=== PATIENT | female | born 2000 | race Caucasian/White ===

== ENCOUNTER 2024-09-25 18:20 | Observation (INO) ==
[2024-09-25] MEDS: ONDANSETRON INJ 2 MG/ML 2 ML VIAL IV STA (19:01)
[2024-09-25] MEDS: MoRPHine SULFATE 4 MG/ML 1 ML CARP\\VIAL IV STA (19:04)
[2024-09-25 19:08] LABS: Hematocrit (blood only) 33.6 % (37.0-47.0); Hemoglobin 10.6 g/dl (12.0-16.0); Mean Corpuscular Hemoglobin 26.2 pg (25.0-34.0); Mean Corpuscular Hgb Conc 31.5 g/dL (32.0-36.0); Mean Corpuscular Volume 83.2 fL (80.0-100.0); Mean Platelet Volume 10.6 fL (9.4-12.4); Platelet Count 277 K/uL (130-400); RDW Coefficient of Variation 15.9 % (11.5-14.5); RDW Standard Deviation 49.1 fL (36.4-46.3); Red Blood Count 4.04 M/uL (4.20-5.40); White Blood Count 9.48 K/ul (4.8-10.8)
[2024-09-25 19:17] LABS: Albumin Globulin Ratio 1.5 (0.9-2); Albumin Level 4.3 gm/dl (3.4-5.0); BUN Creatinine Ratio 10.7 (10-20); Bilirubin,Total 0.5 mg/dl (0.2-1.0); Creatinine Clr Calc Pharmacy 141.3 ml/min; Globulin 2.8 gm/dl (2.5-4.0); Potassium 3.4 mmol/L (3.5-5.1); Total Protein 7.1 gm/dl (6.0-8.3)
[2024-09-25 19:35] LABS: INR 1.2 (0.9-1.1); Partial Thromboplastin Time 26 Seconds (21-31); Prothrombin Time 12.4 Seconds (9.0-12.0)
[2024-09-25] MEDS: KETOROLAC TROMETHAMINE 15 MG/ML VIAL IV STA (20:01)
--- NOTE | 2024-09-25 20:47 | Ultrasound Report ---
Exam(s): US PELVIS EXAM: US Pelvis Transabdominal, Complete CLINICAL HISTORY: Reason for exam: vaginal bleeding/retained POC/endometritis. TECHNIQUE: Real-time complete transabdominal pelvic ultrasound with image documentation. COMPARISON: No relevant prior studies available. FINDINGS: Uterus/cervix: Uterus measures 9.7 x 3.9 x 5.8 cm. Endometrium measures 7 mm. Complex material at the fundal endometrium with possible vascularity, concerning for retained products. No myometrial mass. Right ovary: Right ovary measures 20 x 12 x 24 mm. Normal blood flow. Left ovary: Left ovary not visualized, obscured by bowel gas. Free fluid: No free fluid. Bladder: Unremarkable as visualized. Wall is normal thickness for degree of distention. IMPRESSION: Complex material at the fundal endometrium with possible vascularity, concerning for retained products. Electronically signed by: Polo Britt M.D. 09/25/24 20:46 PM
--- NOTE | 2024-09-25 20:59 | Emergency Department Note ---
History of Present Illness General Chief complaint: Pelvic Pain Stated complaint: BLEEDING FROM D/C, PELVIC PAIN Time Seen by Provider: 09/25/24 18:48 History of Present Illness Provider complaint: Vaginal bleeding pelvic pain Onset (ago): day(s) 1 Maximum Pain Intensity: 3 24-year-old female presents emergency department for vaginal bleeding and pelvic pain. Patient reports she had a recent miscarriage and had D&C done. She states she has a follow-up visit with TRANSPORTATION CONSULTANT Dr. Millard today. She states after the pelvic examination examination she went home and was having increasing pain and vaginal bleeding passing this size blood clots through her vagina and filling up the toilet 3 times with blood from her vagina. No melena or hematochezia. No fever. Home Medications Medication Instructions Recorded Confirmed Type buspirone 5 mg tablet 5 mg PO BID 08/21/24 09/25/24 History escitalopram oxalate 10 mg tablet 10 mg PO QAM 08/21/24 09/25/24 History (Lexapro) mirtazapine 15 mg tablet (Remeron) 7.5 mg PO HS PRN Sleep 08/21/24 09/25/24 History Medical Marijuana 1 dose PO HS 09/14/24 09/25/24 History metronidazole 500 mg tablet 500 mg PO BID 7 days #14 tabs 09/14/24 09/25/24 Rx amoxicillin 500 mg-potassium 1 tab PO BID #14 tabs 09/25/24 09/25/24 Rx clavulanate 125 mg tablet (Augmentin) Allergies Allergy/AdvReac Type Severity Reaction Status Date / Time No Known Allergies Allergy Verified 09/25/24 12:51 Past Med/Surg History Problem List (Updated 09/26/24 @ 00:07 by Antoine Ortiz MD) Endometritis (Acute) Encounter for pre-operative examination Missed with inconclusive viability Size of fetus inconsistent with dates in first trimester Marijuana use during Encounter for supervision of normal intrauterine in multigravida, antepartum Early stage of Medical History History of COVID-19 2022 Depression Anxiety Surgical History H/O right knee surgery Family History Grandmother (Paternal) Breast cancer Denies family history of Ovarian cancer Colorectal cancer Social History Smoking Status: Never smoker Second Hand Exposure: No; Do You Dip or Chew Tobacco: No; Hx Alcohol Use: No Hx Substance Use: Yes Non-Prescribed Medications: Marijuana Substance Use Type Other:: medical card Preferred Language: Bengali Communication Ability: Effective Guidance Counselor Required: No Beliefs That Will Affect Care: None marital status: Single marital status details: Santos Petty (24) [phone] Current Living Situation: Significant Other Current Living Situation Comment: Lives with son and FOB- cats/dogs- FOB changes litter current occupational status: unemployed current occupation: Homemaker How many Children do You have: 1 Feels Safe at Home: Yes Assistive Devices: Glasses Physical Exam Vital Signs Vital Signs - 24 hr 09/25/24 18:30 09/25/24 18:45 09/25/24 19:07 Temperature 36.9 C Temperature Source Temporal Artery Scan Pulse Rate 76 66 Pulse Rate [Apical] 77 Respiratory Rate 16 14 Respiratory Effort / Characteristics Non-Labored Spontaneous Non-Labored Spontaneous Respiratory Depth Normal Normal Respiratory Pattern Regular Blood Pressure 108/66 Blood Pressure [Left Arm] 113/77 Blood Pressure Mean 80 Blood Pressure Mean [Left Arm] 89 Blood Pressure Position Sitting Pulse Oximetry 99 100 Oxygen Delivery Method Room Air Room Air Sepsis Recent Fever Within 48 Hours No Sepsis New/Unexplained Change in Mental Status N/A Sepsis Action Taken by Nursing No Action Required 09/25/24 19:07 09/25/24 21:03 09/25/24 22:40 Temperature 36.7 C Temperature Source Oral Pulse Rate 61 Pulse Rate [Apical] 62 Respiratory Rate 14 Respiratory Effort / Characteristics Non-Labored Spontaneous Respiratory Depth Normal Respiratory Pattern Regular Blood Pressure Blood Pressure [Left Arm] 104/62 Blood Pressure Mean Blood Pressure Mean [Left Arm] 76 Blood Pressure Position Pulse Oximetry 100 99 Oxygen Delivery Method Room Air Room Air Sepsis Recent Fever Within 48 Hours Sepsis New/Unexplained Change in Mental Status Sepsis Action Taken by Nursing 09/25/24 23:00 Temperature Temperature Source Pulse Rate Pulse Rate [Apical] 73 Respiratory Rate 16 Respiratory Effort / Characteristics Respiratory Depth Respiratory Pattern Blood Pressure Blood Pressure [Left Arm] 95/38 L Blood Pressure Mean Blood Pressure Mean [Left Arm] 57 Blood Pressure Position Pulse Oximetry 99 Oxygen Delivery Method Room Air Sepsis Recent Fever Within 48 Hours Sepsis New/Unexplained Change in Mental Status Sepsis Action Taken by Nursing Physical Exam GENERAL: oriented to person, place, and time. appears well-developed and well- nourished. She does not appear distressed. HENT: Exam performed. -Head: Normocephalic and atraumatic. -Right Ear: External ear normal. No mastoid erythema -Left Ear: External ear normal. No mastoid erythema -Mouth/Throat: The oropharynx is clear and moist. No trismus in the jaw. No dental abscesses or uvula swelling. No oropharyngeal exudate or tonsillar abscesses. EYES: Conjunctivae and EOM are normal.Right eye exhibits no discharge. Left eye exhibits no discharge. No scleral icterus. NECK: Normal range of motion. Neck supple. No JVD present. No tracheal deviation and normal range of motion present. CV: Normal rate, regular rhythm, normal heart sounds and intact distal pulses. There is no peripheral edema. Palpable radial pulses bue. PULM/CHEST: Effort normal and breath sounds normal. No respiratory distress. No stridor. no wheezes.no rales. -Chest Wall: no tenderness to palpation ABD: The abdomen is soft. Bowel sounds are normal. no distension. No mass is present. There is tenderness to palpation of left lower quadrant. There is no rebound, no guarding, no Graves's sign and no tenderness at McBurney's point. Rovsig negative MUSC/SKEL: Normal range of motion. There is no peripheral edema, tenderness or deformity. NEURO: Motor and sensation grossly intact. SKIN: Skin is warm and dry. not diaphoretic. PSYCH: normal mood and affect. Behavior is normal. Judgment and thought content normal. Course Course 1847: The patient was evaluated in room A10. A complete history and physical exam was performed Cardiac monitoring: An order was placed for continuous cardiac monitoring. The monitor shows a rate of 80 with sinus rhythm interpreted by me 1949: Vital signs stable. Labs within normal limits. Ultrasound completed. Sp[facility]. She recommends given the Toradol to the patient. She states she has two active patient is in labor but will be down to evaluate the patient. She did review the patient's ultrasound. 2335: Vital signs stable. Dr. Ho at bedside. 0006: Vital signs stable. Dr. Ho states she will admit the patient to her service. Administered Medications Discontinued Medications Ketorolac Tromethamine (Ketorolac Tromethamine 15 Mg/Ml Vial) 15 mg IV NOW STA Stop: 09/25/24 19:52 Last Admin: 09/25/24 20:01 Dose: 15 mg Documented By: EMB Morphine Sulfate (Morphine Sulfate 4 Mg/Ml 1 Ml Carp\Vial) 4 mg IV NOW STA Stop: 09/25/24 18:59 Last Admin: 09/25/24 19:04 Dose: 4 mg Documented By: WAYNE Ondansetron HCl (Ondansetron Inj 2 Mg/Ml 2 Ml Vial) 4 mg IV NOW STA Stop: 09/25/24 19:00 Last Admin: 09/25/24 19:01 Dose: 4 mg Documented By: WAYNE Medical Decision Making Medical Records Attestation: I reviewed the patient's medical records. External medical records reviewed. Patient had a D&C 1 week ago on September [address] Millard. She had a visit with Dr. Millard today where she was diagnosed with endometritis and started on Augmentin. According Dr. Millard's note if the patient continues to bleed heavier and ultrasound will be conducted. RhoGAM was ordered for the patient on August 23, [address] Ho. Laboratory Data Attestation: I reviewed the patient's lab results. 09/25/24 18:45 09/25/24 18:45 Lab Results 09/25/24 09/25/24 09/25/24 Range/Units 18:45 18:46 18:58 WBC 9.48 (4.8-10.8) K/ul RBC 4.04 L (4.20-5.40) M/uL Hgb 10.6 L (12.0-16.0) g/dl Hct 33.6 L (37.0-47.0) % MCV 83.2 (80.0-100.0) fL MCH 26.2 (25.0-34.0) pg MCHC 31.5 L (32.0-36.0) g/dL RDW Std Deviation 49.1 H (36.4-46.3) fL RDW Coeff of Kaylee 15.9 H (11.5-14.5) % Plt Count 277 (130-400) K/uL MPV 10.6 (9.4-12.4) fL PT 12.4 H (9.0-12.0) Seconds INR 1.2 H (0.9-1.1) APTT 26 (21-31) Seconds PTT Ratio 1.0 Sodium 138 (136-145) mmol/L Potassium 3.4 L (3.5-5.1) mmol/L Chloride 107 (98-107) mmol/L Carbon Dioxide 24 (21-32) mmol/L Anion Gap 7 (3-11) BUN 6 (6-23) mg/dl Creatinine 0.56 L (0.6-1.2) mg/dl Est Cr Clr Drug Dosing 141.3 ml/min eGFR 129.00 BUN/Creatinine Ratio 10.7 (10-20) Glucose 81 (70-99(Fasting)) mg/dl Lactate 0.8 (0.4-2.0) mmol/L Calcium 9.0 (8.6-10.3) mg/dl Total Bilirubin 0.5 (0.2-1.0) mg/dl AST 15 (13-39) U/L ALT 9 (7-52) U/L Alkaline Phosphatase 81 (34-104) U/L Total Protein 7.1 (6.0-8.3) gm/dl Albumin 4.3 (3.4-5.0) gm/dl Globulin 2.8 (2.5-4.0) gm/dl Albumin/Globulin Ratio 1.5 (0.9-2) Blood Type A Negative Antibody Screen POSITIVE A Antibody Identification Anti-D due to RhIg Imaging Data Radiologist's Impression: Pelvis Ultrasound 09/25/24 18:50 Exam(s): US PELVIS EXAM: US Pelvis Transabdominal, Complete CLINICAL HISTORY: Reason for exam: vaginal bleeding/retained POC/endometritis. TECHNIQUE: Real-time complete transabdominal pelvic ultrasound with image documentation. COMPARISON: No relevant prior studies available. FINDINGS: Uterus/cervix: Uterus measures 9.7 x 3.9 x 5.8 cm. Endometrium measures 7 mm. Complex material at the fundal endometrium with possible vascularity, concerning for retained products. No myometrial mass. Right ovary: Right ovary measures 20 x 12 x 24 mm. Normal blood flow. Left ovary: Left ovary not visualized, obscured by bowel gas. Free fluid: No free fluid. Bladder: Unremarkable as visualized. Wall is normal thickness for degree of distention. IMPRESSION: Complex material at the fundal endometrium with possible vascularity, concerning for retained products. Electronically signed by: Polo Britt M.D. 09/25/24 20:46 PM [facility] Narrative 1848: The patient was evaluated in room A10. A complete history and physical exam was performed Cardiac monitoring: An order was placed for continuous cardiac monitoring. The monitor shows a rate of 80 with sinus rhythm interpreted by me 1949: Vital signs stable. Labs within normal limits. Ultrasound completed. Spoke with Dr. Ho on-call [facility] TRANSPORTATION CONSULTANT. She recommends given the Toradol to the patient. She states she has two active patient is in labor but will be down to evaluate the patient. She did review the patient's ultrasound. 2336: Vital signs stable. Dr. Ho at bedside. 0006: Vital signs stable. Dr. Ho states she will admit the patient to her service. Impression & Plan Endometritis Discharge Plan Visit Data Chief Complaint: Pelvic Pain Stated Complaint: BLEEDING FROM D/C, PELVIC PAIN ED Provider: Antoine Ortiz Discharge Problem: Endometritis Patient Disposition: Admitted As Inpatient Forms Stand Alone Forms: My [facility] GBS Prescriptions Prescriptions: No Action mirtazapine [Remeron] 15 mg tablet 7.5 mg PO HS PRN (Reason: Sleep) escitalopram oxalate [Lexapro] 10 mg tablet 10 mg PO QAM buspirone 5 mg tablet 5 mg PO BID metronidazole 500 mg tablet 500 mg PO BID 7 Days Qty: 14 0RF Rx Instructions: to start post op amoxicillin-pot clavulanate [Augmentin] 500-125 mg tablet 1 tab PO BID Qty: 14 0RF Medical Marijuana 1 dose PO HS Referrals Referrals: PCP,NO [Primary Care Provider] -
--- NOTE | 2024-09-26 00:36 | History & Physical Report ---
Date of Service September 26, 2024 Assessment & Plan (1) Endometritis: Plan: Patient is being admitted for IV antibiotics and pain control for suspected endometritis following a D&E for a 6-week miscarriage. Her white count is normal and so far she has been afebrile during her emergency room visit. However because of the bleeding the patient has described, and the ongoing pelvic pain, I feel it is necessary for inpatient treatment and if she does not improve over the next 24 to 48 hours, a repeat D&C may be indicated. Will repeat the CBC another quant hCG in the morning. History of Present Illness Primary Care Provider: NO PCP Patient is a 24-year-old 2 para 1-0-1-1 female who presents to the emergency room with ongoing cramping, abdominal pain that she describes as an ache, and vaginal bleeding. She had undergone a D&E for a 6-week missed on 09/18/2024. The procedure apparently was uneventful and she went home in good condition. In the first several days after the procedure, she had light bleeding and spotting. 2 days ago she developed increased bleeding with tiny clots. Yesterday she had increased bleeding that she describes clots the size of golf balls and the size of her fist at times. In between these episodes of clots she had minimal bleeding. She denies any fever or chills although she has some nausea. She was seen in the office on 09/25/2024 where a diagnosis of endometritis was made. She was given a prescription for Augmentin 500 mg p.o. twice daily. So far, she is only taken 1 dose. Her cramping and bleeding had continued and she was concerned by the size of the clots and she presented to the emergency room. The bleeding has slowed significantly and she has not passed any further clots during her stay in the ER. She is afebrile and white count is normal hemoglobin is 10.6. Ultrasound revealed a 7 mm lining with a possible collection of tissue in the fundus but there is minimal vascularity in the area of the collection. Quantitative hCG was 713. Allergies Allergy/AdvReac Type Severity Reaction Status Date / Time No Known Allergies Allergy Verified 09/25/24 12:51 Home Medications Medication Instructions Recorded Confirmed Type buspirone 5 mg tablet 5 mg PO BID 08/21/24 09/25/24 History escitalopram oxalate 10 mg tablet 10 mg PO QAM 08/21/24 09/25/24 History (Lexapro) mirtazapine 15 mg tablet (Remeron) 7.5 mg PO HS PRN Sleep 08/21/24 09/25/24 History Medical Marijuana 1 dose PO HS 09/14/24 09/25/24 History metronidazole 500 mg tablet 500 mg PO BID 7 days #14 tabs 09/14/24 09/25/24 Rx amoxicillin 500 mg-potassium 1 tab PO BID #14 tabs 09/25/24 09/25/24 Rx clavulanate 125 mg tablet (Augmentin) Patient History Medical History History of COVID-19 2022 Depression Anxiety Surgical History H/O right knee surgery Family History Grandmother (Paternal) Breast cancer Denies family history of Ovarian cancer Colorectal cancer Social History Smoking Status: Never smoker Second Hand Exposure: No; Do You Dip or Chew Tobacco: No; Hx Alcohol Use: No Hx Substance Use: Yes Non-Prescribed Medications: Marijuana Substance Use Type Other:: medical card Preferred Language: Thai Communication Ability: Effective Manual Lathe Operator Required: No Beliefs That Will Affect Care: None marital status: Single marital status details: Santos Petty (24) [phone] Current Living Situation: Significant Other Current Living Situation Comment: Lives with son and FOB- cats/dogs- FOB changes litter current occupational status: unemployed current occupation: Homemaker How many Children do You have: 1 Feels Safe at Home: Yes Assistive Devices: Glasses Review of Systems All systems reviewed & are unremarkable except as noted in HPI & below Physical Exam Constitutional: WD/WN, vitals as above Psychiatric: A+Ox3, euthymic affect Genitourinary: no vaginal lesions, no adnexal mass normal external appearance Speculum/Bimanual Exam: normal appearance of the vagina, normal appearance of the cervix (cervical os is closed) and + abnormal uterine size (top normal size) uterus tender to palpation small amount of dark clot in vaginal vault mixed with mucus Results & Data Vital Signs (Past 12 Hours) Vital Signs Temp Pulse Pulse Resp BP BP Pulse Ox 09/26/24 00:19 98.2 F 68 14 99/59 L 98 09/25/24 23:00 73 16 95/38 L 99 09/25/24 22:40 61 09/25/24 21:03 98.1 F 62 14 104/62 99 09/25/24 19:07 100 09/25/24 19:07 77 14 113/77 100 09/25/24 18:45 66 09/25/24 18:30 98.4 F 76 16 108/66 99 O2 Del Method 09/26/24 00:19 Room Air 09/25/24 23:00 Room Air 09/25/24 22:40 09/25/24 21:03 Room Air 09/25/24 19:07 Room Air 09/25/24 19:07 Room Air 09/25/24 18:45 09/25/24 18:30 Room Air Code Status & VTE Plan VTE Prophylaxis Plan VTE Prophylaxis will be ordered: No Reason for no VTE drug order: Contraindicated Coding Level of Care Code 05264 INT INP/OBS CARE MIN Diagnoses Endometritis N71.9
[2024-09-26] MEDS: MoRPHine SULFATE 4 MG/ML 1 ML CARP\\VIAL IV STA (01:07)
[2024-09-26] MEDS: ONDANSETRON INJ 2 MG/ML 2 ML VIAL IV PRN (01:13)
[2024-09-26] MEDS: AMPICILLIN/SULBACTAM SOD 3,000 MG/100 ML BAG IV SCH (02:35)
[2024-09-26] MEDS: MIRTAZAPINE TAB 15 MG TAB PO PRN (03:23)
[2024-09-26 06:32] LABS: Basophils # (auto) 0.02 K/uL (0.00-0.20); Basophils % (auto) 0.3 %; Eosinophils # (auto) 0.08 K/uL (0.00-0.50); Eosinophils % (auto) 1.3 %; Hematocrit (blood only) 29.7 % (37.0-47.0); Hemoglobin 9.5 g/dl (12.0-16.0); Immature Granulocytes # (auto) 0.02 K/uL (0.01-0.20); Immature Granulocytes % (auto) 0.3 %; Lymphocytes # (auto) 0.67 K/uL (1.20-3.40); Lymphocytes % (auto) 11.1 %; Mean Corpuscular Hemoglobin 26.5 pg (25.0-34.0); Mean Corpuscular Volume 82.7 fL (80.0-100.0); Mean Platelet Volume 10.1 fL (9.4-12.4); Monocytes # (auto) 0.29 K/uL (0.11-0.59); Monocytes % (auto) 4.8 %; Neutrophils # (auto) 4.94 K/uL (1.40-6.50); Neutrophils % (auto) 82.2 %; Platelet Count 228 K/uL (130-400); RDW Coefficient of Variation 15.9 % (11.5-14.5); RDW Standard Deviation 48.3 fL (36.4-46.3); Red Blood Count 3.59 M/uL (4.20-5.40); White Blood Count 6.02 K/ul (4.8-10.8)
[2024-09-26] MEDS: ACETAMINOPHEN 500 MG TAB PO PRN (07:23)
[2024-09-26] MEDS ORDERED: INFLUENZA VACC TS2024-25(6m+)/PF (IIV3) 0.5mL Syr IM ONE (08:00)
--- NOTE | 2024-09-26 08:25 | Gynecologic Progress Note ---
Date of Service September 26, 2024 Assessment & Plan (1) Endometritis: Plan: white count normal afebrile continue Unasyn ( chosen as there is a shortage of clindamycin IV ) continue with pain management and monitor for bleeding HGB dropped from 11.1 on 09/14 to 9.7 this morning quant HCG dropped from 79 yesterday to 491 this AM Admission and Anticipated Discharge Date Admission Date: September 26, 2024 Subjective patient sleeping this morning. no episodes of heavy bleeding overnight. has gotten one additional dose of IVmorphine at midnight prior to transfer to the floor. only tylenol for pain this morning. Review of Systems Review of Systems: All systems reviewed & are unremarkable except as noted in HPI & below Results & Data Vital Signs (Past 12 Hours) Vital Signs Temp Pulse Pulse Pulse Resp BP BP 09/26/24 01:55 98.1 F 67 16 100/63 09/26/24 01:38 66 18 105/66 09/26/24 00:43 61 14 110/62 09/26/24 00:43 09/26/24 00:19 98.2 F 68 14 99/59 L 09/25/24 23:00 73 16 95/38 L 09/25/24 22:40 61 09/25/24 21:03 98.1 F 62 14 104/62 Pulse Ox O2 Del Method 09/26/24 01:55 100 Room Air 09/26/24 01:38 97 Room Air 09/26/24 00:43 100 Room Air 09/26/24 00:43 100 Room Air 09/26/24 00:19 98 Room Air 09/25/24 23:00 99 Room Air 09/25/24 22:40 09/25/24 21:03 99 Room Air PG Care Time/CCT Total # of Minutes Spent Total Time Spent with Patient: Total time spent is greater than 50% in coordination of care (as documented) at patient's floor/unit and/or counseling patient: Coding Level of Care Code 57750 SUB INP/OBS CARE 12/23MIN Diagnoses Endometritis N71.9
[2024-09-26] MEDS: busPIRone 5 MG TAB PO SCH (09:03)
[2024-09-26] MEDS: ESCITALOPRAM OXALATE 10 MG TAB PO SCH (09:04)
[2024-09-26] MEDS: KETOROLAC 30 MG/ML VIAL IV PRN (11:33)
--- NOTE | 2024-09-26 11:45 | Communication Note ---
Date of Service: September 26, 2024 Checked on pt, says not passing clots/significant pain while laying down but does have more discomfort/pain on sides when moving. Passed small clot earlier in bathroom but nothing like last night. Been able to sleep this AM. Tylenol not helping as much so will try toradol for pain now, is due for another dose of unasyn in 1-2hrs so will continue poc currently
[2024-09-26 16:36] LABS: Appearance Urine Cloudy (Clear); Bacteria Urine Automated None Seen (None Seen); Bilirubin Urine Negative (Negative); Blood Urine 3+ (Negative); Cast Urine Automated 0-2 /lpf (0-2); Color Urine Dark Yellow; Glucose Urine UA Negative (Negative); Ketones Urine 1+ (Negative); Leukocyte Esterase Urine Trace (Negative); Nitrite Urine Negative (Negative); Protein Urine 1+ (Negative); RBC Urine Automated >20 /hpf (0-2); Specific Gravity Urine 1.039 (1.000-1.030); Urobilinogen Urine Negative (Negative); WBC Urine Automated 0-5 /hpf (0-5); pH Urine 6.5 (4.5-7.5)
[2024-09-27 02:32] VITALS: O2SAT 99
--- NOTE | 2024-09-27 08:29 | Gynecologic Progress Note ---
Date of Service September 27, 2024 Assessment & Plan (1) Endometritis: Plan: s/p 24hrs antibx, remains afebrile, pain and bleeding are both improved so ok to dc. WBC was never elevated, hcg was trending down. Will transition to PO course of augmenting and arrange for f/u with surgeon. Return precautions reviewed Admission and Anticipated Discharge Date Admission Date: September 26, 2024 Subjective BECKI overnight. Pain much improved, just a little tender if pushing on abd but otherwise doesn't feel much. Minimal bleeding. Some nausea but notes she is nauseous at baseline even before procedure, states it is like that. Denies fevers, chills, CP, SOB. Tolerated taco chavez last night Physical Exam Gastrointestinal (Abdomen): abd soft, mildly TTP but improved from yesterday. No rebound or guarding Results & Data Vital Signs (Past 12 Hours) Vital Signs Temp Pulse Resp BP Pulse Ox O2 Del Method 09/27/24 02:25 98.6 F 61 14 86/45 L 99 Room Air PG Care Time/CCT Total # of Minutes Spent Total Time Spent with Patient: Total time spent is greater than 50% in coordination of care (as documented) at patient's floor/unit and/or counseling patient: Coding Level of Care Code None Diagnoses Endometritis N71.9
[2024-09-27 08:41] VITALS: BP 102/57; PULSE 74; RESP 18; TEMP 98.4
--- NOTE | 2024-09-29 09:14 | Discharge Summary ---
Date of Service September 29, 2024 Admission HPI Per Admitting Provider Patient is a 24-year-old 2 para 1-0-1-1 female who presents to the emergency room with ongoing cramping, abdominal pain that she describes as an ache, and vaginal bleeding. She had undergone a D&E for a 6-week missed on 09/18/2024. The procedure apparently was uneventful and she went home in good condition. In the first several days after the procedure, she had light bleeding and spotting. 2 days ago she developed increased bleeding with tiny clots. Yesterday she had increased bleeding that she describes clots the size of golf balls and the size of her fist at times. In between these episodes of clots she had minimal bleeding. She denies any fever or chills although she has some nausea. She was seen in the office on 09/25/2024 where a diagnosis of endometritis was made. She was given a prescription for Augmentin 500 mg p.o. twice daily. So far, she is only taken 1 dose. Her cramping and bleeding had continued and she was concerned by the size of the clots and she presented to the emergency room. The bleeding has slowed significantly and she has not passed any further clots during her stay in the ER. She is afebrile and white count is normal hemoglobin is 10.6. Ultrasound revealed a 7 mm lining with a possible collection of tissue in the fundus but there is minimal vascularity in the area of the collection. Quantitative hCG was 713. Admission Exam (Per Admitting) Constitutional WD/WN, vitals as above Psychiatric A+Ox3, euthymic affect Genitourinary no vaginal lesions, no adnexal mass normal external appearance Speculum/Bimanual Exam: normal appearance of the vagina, normal appearance of the cervix (cervical os is closed) and + abnormal uterine size (top normal size) Discharge Data Consultations 09/25/24 19:49 Consult Gynecology Stat 09/25/24 23:53 ED Decision to Admit Stat Discharge Plan Discharge Items Patient Disposition: Home - Self-Care Reason For Visit: ENDOMETRITIS Discharge Diagnosis: endometritis Activity: Per Instructions section Non-emergency contact: [facility] Call non-emergency contact if: your pain is not controlled, your pain is worsening, your pain is unusual for you, you have a fever and your temperature is above 101 Follow-up/Referrals: PCP,NO [Primary Care Provider] - Diet: Regular Addtl Attending Provider Instructions: -nothing in the vagina until bleeding fully stops -continue taking ibuprofen and tylenol at home -you will be prescribed augmentin 875mg every 12 hours for 14d -you will be contacted to schedule a follow up visit Pending Studies at Discharge: Yes Stand-Alone Forms: My [employer], Smoking Cessation Medications and DC Order Prescriptions: New amoxicillin-pot clavulanate 875-125 mg tablet 1 tab PO Q12H Qty: 14 0RF Continued mirtazapine [Remeron] 15 mg tablet 7.5 mg PO HS PRN (Reason: Sleep) escitalopram oxalate [Lexapro] 10 mg tablet 10 mg PO QAM buspirone 5 mg tablet 5 mg PO BID metronidazole 500 mg tablet 500 mg PO BID 7 Days Qty: 14 0RF Rx Instructions: to start post op Medical Marijuana 1 dose PO HS Discontinued amoxicillin-pot clavulanate [Augmentin] 500-125 mg tablet 1 tab PO BID Qty: 14 0RF Discharge Orders: Discharge Order (Routine); Ordered 09/27/24 Ordered By: Margoth Dill/Other Patient Handouts: D and E, Preventing Deep Vein Thrombosis Admission Data Admit Date/Time: 09/26/24 00:16 Attending Provider: Mony Bradshaw Admit Provider: Mony Bradshaw Primary Care Provider: PCP,NO Other Providers: Mony Bradshaw Other Interventions: Discharge Summary Assessment (RN) Last Done: 09/27/24 08:41 Coding Level of Care Code 17549 IN/OBS DISCH 30 MIN/LESS
== END 2024-09-27 09:07 | disposition home or self-care (01) ==
LOC: ED 18:20 → 4E1 18:20